=== PATIENT | male | born 1950 | race Caucasian/White ===

== ENCOUNTER 2021-09-29 00:05 | Emergency (ER) | payer OTHER ==
[~2021-09-29] VITALS: Ht 167.6 cm; Wt 81.6 kg
[2021-09-29 00:32] VITALS: BP 117/41
--- NOTE | 2021-09-29 00:34 | NUR ---
PT TO BED 2
[2021-09-29 00:58] LABS: BASOPHILS % (AUTO) 0.8 % (0.0-2.0); EOSINOPHILS # (AUTO) 0.1 K/uL (0-0.4); EOSINOPHILS % (AUTO) 2.8 % (0.0-4.0); HEMATOCRIT 41.9 % (36-52); HEMOGLOBIN 14.1 g/dL (12.0-18.0); LYMPHOCYTES # (AUTO) 0.7 K/uL (2.0-11.5); MEAN CORPUSCULAR HEMOGLOBIN 31 pg (27-31); MEAN CORPUSCULAR HGB CONC 34 g/dL (33-37); MEAN CORPUSCULAR VOLUME 92.8 fL (80-94); MONOCYTES # (AUTO) 0.3 K/uL (0.8-1.0); MONOCYTES % (AUTO) 9.3 % (1.7-9.3); NEUTROPHILS # (AUTO) 2.2 K/uL (1.8-7.7); NEUTROPHILS % (AUTO) 65.1 % (42.2-75.2); PLATELET COUNT (AUTO) 156 K/uL (140-450); RED BLOOD CELL COUNT(AUTO) 4.52 MIL/uL (4.20-6.10); RED CELL DISTRIBUTION WIDTH 15.1 % (11.6-13.7); WHITE BLOOD COUNT (AUTO) 3.3 K/uL (4.8-10.8)
[2021-09-29 01:56] LABS: ANION GAP 15.8 (8-16); CARBON DIOXIDE 26.6 mmol/L (21-32); CHLORIDE 100 mmol/L (98-107); POTASSIUM 3.4 mmol/L (3.5-5.1); SODIUM SERUM 139 mmol/L (136-145)
[2021-09-29 01:57] LABS: GLUCOSE 133 mg/dL (74-106); TOTAL BILIRUBIN 4.5 mg/dL (0.0-1.0); UREA NITROGEN, BLOOD 14 mg/dL (7-18)
[2021-09-29 02:03] LABS: ALBUMIN 3.2 g/dL (3.4-5.0); ASPARTATE AMINOTRANSFERASE 360 U/L (15-37)
--- NOTE | 2021-09-29 02:45 | NUR ---
PER PATIENT HIS BEEN HAVING TROUBLE URINATION SINCE THE FALL, URINARY RETENTION X 3 DAYS. FRANCINE MADE AWARE, ATTEMPTED TO INSERT FC SILICONE CATH, RESISTANCE MET DURING INSERTION. F14 COUDE CATHETER INSERTED WITHOUT DIFFICULTY.
[2021-09-29] MEDS ORDERED: ATEN25TA7 PO (04:51)
[2021-09-29] MEDS ORDERED: TAMS0.4C96 PO (04:54)
[2021-09-29] MEDS ORDERED: ATOR40TA PO (04:54)
[2021-09-29] MEDS ORDERED: OMEP20EC11 PO (04:54)
[2021-09-29] MEDS ORDERED: CHOL500040 PO (04:59)
[2021-09-29] MEDS ORDERED: SENN-72 PO (04:59)
[2021-09-29] MEDS ORDERED: MIRT-91 PO (04:59)
[2021-09-29] MEDS ORDERED: [UNRECOGNIZED DRUG - CODE] PO (04:59)
[2021-09-29] MEDS ORDERED: DOCU-299 PO (04:59)
[2021-09-29] MEDS ORDERED: METF-350 PO (04:59)
--- NOTE | 2021-09-29 05:52 | NUR ---
CT scan read ready and seen by Dr. Muse,negative for fracture. Will dc back to long term facility. Receiving RN Jennie aware. DR. Muse made aware of patient's fc, ok to remove once discharge transportation is requested.
[2021-09-29] MEDS ORDERED: IBUP-2213 PO (05:55)
[2021-09-29] MEDS ORDERED: ACET-8386 PO (05:55)
--- NOTE | 2021-09-29 06:49 | NUR ---
Dong catheter removed, patient woken up for road test, pt says he can't stand.
--- NOTE | 2021-09-29 07:17 | NUR ---
Hand-off to Dedrick RN for continuity of care. Receiving facility aware of patient's discharge.
--- NOTE | 2021-09-29 09:21 | NUR ---
TRANSPORTATION ETA 1400
--- NOTE | 2021-09-29 09:25 | NUR ---
CONTACTED [facility] SPOKE TO MIK INFORMED TRANSPORT TIME 1400
--- NOTE | 2021-09-29 13:30 | NUR ---
Patient to be transferred to [facility]. Is being transferred due to lower level of care. Receiving facility has accepting physician and available space. ER physician has signed transfer form. Patient or responsible alliance party has agreed to transfer and signed form. Patient belongings inventoried and will be sent with patient. Copy of nursing notes, lab reports, EKG, Physicians Orders and X-rays to be sent with patient. Report called to [facility] at receiving facility. [facility] CONTACTED FOR TRANSPORT.
--- NOTE | 2021-09-29 13:53 | NUR ---
PATIENT AMBULATED FROM WHEEL CHAIR TO [facility] AND WAS ABLE TO STAND AND ENTER VEHICLE WITH MINIMAL ASSISTANCE
--- NOTE | 2021-09-29 13:54 | NUR ---
[facility] CONTACTED TO INFORM PATIENT ARRIVING SHORTLY TO ASSIST INTO FACILITY
[2021-09-29 13:55] VITALS: BP 103/54
== END 2021-09-29 13:53 ==
LOC: MED 00:05
DX: S70.02XA Contusion of left hip, initial encounter (principal); R10.32 Left lower quadrant pain; E11.9 Type 2 diabetes mellitus without complications; I10 Essential (primary) hypertension; Z98.890 Other specified postprocedural states; Z79.899 Other long term (current) drug therapy; Z88.1 Allergy status to other antibiotic agents; Z88.8 Allergy status to other drugs, medicaments and biological substances; W18.39XA Other fall on same level, initial encounter; Y92.89 Other specified places as the place of occurrence of the external cause; Y93.89 Activity, other specified; Y99.8 Other external cause status
CPT/HCPCS: 36415; 71045; 72192; 73502; 80053; 84484; 85025; 93005; 99285; Q0092

== ENCOUNTER 2021-10-08 06:40 | Inpatient (IN) | payer OTHER ==
[~2021-10-08] VITALS: Ht 170.2 cm; Wt 68.5 kg
[2021-10-08] VITALS (13 sets, daily range): BP systolic 108–133; BP diastolic 58–77
[~2021-10-08 06:40] MED LIST: ACET-8386 PO; ATEN25TA7 PO; ATOR40TA PO; CHOL500040 PO; DOCU-299 PO; IBUP-2213 PO; METF-350 PO; MIRT-91 PO; OMEP20EC11 PO; SENN-72 PO; TAMS0.4C96 PO; [UNRECOGNIZED DRUG - CODE] PO
--- NOTE | 2021-10-08 06:44 | NUR ---
PT BROUGHT TO BED 7 VIA HAILE TATUM
--- NOTE | 2021-10-08 06:46 | NUR ---
DR LARRY AT BEDSIDE EVALUATING PT
[2021-10-08] MEDS ORDERED: NACL 0.9% 1,000 ML IV ONE (06:50)
[2021-10-08] MEDS ORDERED: PANTOPRAZOLE 40 MG INJ VIAL IVP ONE (06:55)
[2021-10-08 07:18] LABS: BASOPHILS % (AUTO) 0.1 % (0.0-2.0); EOSINOPHILS % (AUTO) 0.1 % (0.0-4.0); HEMATOCRIT 28.1 % (36-52); HEMOGLOBIN 9.4 g/dL (12.0-18.0); LYMPHOCYTES # (AUTO) 1.5 K/uL (2.0-11.5); LYMPHOCYTES % (AUTO) 14.2 % (20.5-51.1); MEAN CORPUSCULAR HEMOGLOBIN 32 pg (27-31); MEAN CORPUSCULAR HGB CONC 34 g/dL (33-37); MEAN CORPUSCULAR VOLUME 94.6 fL (80-94); MONOCYTES # (AUTO) 0.6 K/uL (0.8-1.0); NEUTROPHILS # (AUTO) 8.5 K/uL (1.8-7.7); NEUTROPHILS % (AUTO) 79.6 % (42.2-75.2); PLATELET COUNT (AUTO) 266 K/uL (140-450); RED BLOOD CELL COUNT(AUTO) 2.97 MIL/uL (4.20-6.10); RED CELL DISTRIBUTION WIDTH 15.9 % (11.6-13.7); WHITE BLOOD COUNT (AUTO) 10.7 K/uL (4.8-10.8)
[2021-10-08] MEDS ORDERED: ONDANSETRON 4 MG/2 ML VIAL IVP ONE (07:35)
--- NOTE | 2021-10-08 07:45 | NUR ---
70 Y/O MALE BIBA FROM [facility] C/O N/V X0545 TODAY. +BLOOD IN VOMIT. PER MEDICS, 100CC OF BLOOD. PT ALSO C/O HEADACHE AND ABDOMINAL PAIN. DENIES ANYTHING LIKE THIS HAPPENING BEFORE. ABDOMEN IS TENDER. PT DENIES FEVER, CHILLS, SOB, CHEST PAIN. PMH:DM2. HTN, HIP FX, ANEMIA, HLD, LIVER CIRRHOSIS ALLERGIES: CIPROFLOXACIN, DULOXETINE, NORTRIPTYLINE
[2021-10-08 07:58] LABS: ALBUMIN 2.4 g/dL (3.4-5.0); ANION GAP 21.6 (8-16); ASPARTATE AMINOTRANSFERASE 383 U/L (15-37); CARBON DIOXIDE 17.6 mmol/L (21-32); CHLORIDE 99 mmol/L (98-107); CREATININE 1.4 mg/dL (0.6-1.3); GLUCOSE 257 mg/dL (74-106); LIPASE 143 U/L (73-393); POTASSIUM 4.2 mmol/L (3.5-5.1); SODIUM SERUM 134 mmol/L (136-145); TOTAL BILIRUBIN 4.4 mg/dL (0.0-1.0); UREA NITROGEN, BLOOD 56 mg/dL (7-18)
[2021-10-08 08:14] LABS: PROTHROMBIN TIME 15.3 secs (10.8-13.4)
--- NOTE | 2021-10-08 08:49 | NUR ---
PT TAKEN TO CT SCAN VIA RC
[2021-10-08] MEDS ORDERED: cefTRIAXone 1,000 MG VIAL ONE (09:30)
[2021-10-08] MEDS ORDERED: OCTREOTIDE ACETATE 100 MCG/ML VIAL IV SCH (10:00)
[2021-10-08] MEDS ORDERED: OCTREOTIDE ACETATE 1.25 MG in NACL 0.9% 250 ML IV SCH (10:00)
--- NOTE | 2021-10-08 10:00 | NUR ---
YURY HENRY AND URINE WALKED TO LAB
[2021-10-08] MEDS ORDERED: ACETAMINOPHEN 325 MG TAB PO PRN (10:20)
[2021-10-08] MEDS ORDERED: DOCUSATE SODIUM 100 MG GELCAP PO PRN (10:20)
[2021-10-08] MEDS ORDERED: ONDANSETRON 4 MG/2 ML VIAL IM/IVP PRN (10:20)
--- NOTE | 2021-10-08 10:23 | NUR ---
per icu charge nurse, pt will go to ICU 7 once the karsten clears
[2021-10-08 10:32] LABS: APPEARANCE,URINE CLEAR (CLEAR); BILIRUBIN,URINE 1+ (NEGATIVE); BLOOD, URINE TRACE-I (NEGATIVE); COLOR,URINE YELLOW (YELLOW); LEUKOCYTE ESTERASE ,URINE NEGATIVE (NEGATIVE); NITRITE, URINE NEGATIVE (NEGATIVE); UGLUCOSE 2+ (NEGATIVE)
[2021-10-08] MEDS: NACL 0.9% 1,000 ML IV SCH (11:00)
--- NOTE | 2021-10-08 11:08 | NUR ---
Patient will be admitted to care of . Admited to ICU . Will go to rooM 7. Belongings list completed. Report to ALEC AKERS.
[2021-10-08 11:25] LABS: MAGNESIUM 1.8 mg/dL (1.8-2.4); PHOSPHORUS 2.5 mg/dL (2.5-4.9); THYROID STIMULATING HORMONE 2.33 uIU/mL (0.34-3.74)
[2021-10-08 11:28] LABS: BARBITURATE, URINE NEGATIVE ng/ml (NEG <=200); BENZODIAZEPINE, URINE NEGATIVE ng/mL (NEG <=200); CANNABINOID, URINE NEGATIVE ng/mL (NEG <=50); COCAINE, URINE NEGATIVE ng/mL (NEG <=300); OPIATE, URINE POSITIVE ng/mL (NEG <=2000); PHENCYCLIDINE SCREEN,URINE NEGATIVE ng/mL (NEG <=25)
--- NOTE | 2021-10-08 11:30 | NUR ---
PT ARRIVED FROM ER, RECEIVED BEDSIDE REPORT FROM ANSON AJ RN FOR CONTINUITY OF CARE. SUPINE IN THE BED, EYES OPEN, PERRLA, AAOX4. ON ROOM AIR, SPO2 100%. ST ON THE MONITOR. HR 130. NOTED TO HAVE BLOODY EMESIS. BOWEL SOUNDS ACTIVE. INCONTINENT OF BOWEL, PER ANSON, LAST BM WAS TODAY 1045. CONTINENT OF BLADDER, PT USES URINAL. NONAMBULATORY, PT LETHARGIC. R AC 20G IV PATENT, INTACT. STANDARD PRECAUTIONS IN PLACE. SAFETY PRECAUTIONS MET. INITIAL ASSESSMENT COMPLETE, WILL CONTINUE TO CLOSELY MONITOR.
[2021-10-08] MEDS ORDERED: MIDAZOLAM 5 MG/5 ML VIAL ONE (11:39)
[2021-10-08] MEDS ORDERED: fentaNYL citrate 0.05 MG/ML VIAL ONE (11:39)
[2021-10-08] MEDS ORDERED: diphenhydrAMINE 50 MG/ML VIAL ONE (11:39)
--- NOTE | 2021-10-08 11:45 | NUR ---
EGD DONE BY DR SOLIMAN FOUND E. VARICES.
[2021-10-08] MEDS: OCTREOTIDE ACETATE 1.25 MG in NACL 0.9% 250 ML IV SCH (11:47)
--- NOTE | 2021-10-08 12:15 | NUR ---
ENDORSED BEDSIDE REPORT TO DIONY PRIMARY RN FOR CONTINUITY OF CARE.
[2021-10-08] MEDS ORDERED: fentaNYL citrate 0.05 MG/ML VIAL IVP ONE (13:00)
[2021-10-08] MEDS ORDERED: MIDAZOLAM 2 MG/2 ML VIAL IVP ONE (13:00)
[2021-10-08 13:42] LABS: RBC,URINE 0-5 /HPF (0-5); WBC,URINE 0-5 /HPF (0-5)
[2021-10-08 14:31] LABS: BASOPHILS % (AUTO) 0.1 % (0.0-2.0); HEMATOCRIT 25.1 % (36-52); HEMOGLOBIN 8.4 g/dL (12.0-18.0); LYMPHOCYTES % (AUTO) 16.5 % (20.5-51.1); MEAN CORPUSCULAR HEMOGLOBIN 31 pg (27-31); MEAN CORPUSCULAR HGB CONC 33 g/dL (33-37); MEAN CORPUSCULAR VOLUME 93.4 fL (80-94); MONOCYTES # (AUTO) 0.8 K/uL (0.8-1.0); MONOCYTES % (AUTO) 6.5 % (1.7-9.3); NEUTROPHILS # (AUTO) 9.5 K/uL (1.8-7.7); NEUTROPHILS % (AUTO) 76.9 % (42.2-75.2); PLATELET COUNT (AUTO) 249 K/uL (140-450); RED BLOOD CELL COUNT(AUTO) 2.69 MIL/uL (4.20-6.10); RED CELL DISTRIBUTION WIDTH 16.1 % (11.6-13.7); WHITE BLOOD COUNT (AUTO) 12.4 K/uL (4.8-10.8)
--- NOTE | 2021-10-08 17:00 | NUR ---
REPOSITION INCONTINENT LARGE AMOUNT OF MELENA STOOL.
--- NOTE | 2021-10-08 18:00 | NUR ---
PT. COMPLAIN PAIN ON HIS BACK 9/10 SCALE MORPHINE SULFATE GAVE ORDERED,
--- NOTE | 2021-10-08 19:15 | NUR ---
RECEIVED BEDSIDE REPORT FROM DAY SHIFT NURSE. PATIENT IS AWAKE, ALERT, AND COOPERATIVE. S/P EGD. RESPIRATION EVEN UNLABORED ON 2L NC O2 SATING AT 100%. SKIN IS WARM AND DRY. IV PATENT AND INTACT. OCTREOTIDE RUNNING AT 10ML/HR (50MCG/HR) AND NS AT 60ML/HR. NO BLEEDING NOTED AT THIS TIME. PLAN OF CARE DISCUSSED. ALL SAFETY MEASURES IN PLACE. BED IS AT LOW POSITION. CALL LIGHT WITHIN REACH. WILL CONTINUE TO MONITOR.
--- NOTE | 2021-10-08 19:24 | NUR ---
ENDORSED TO WOOD PATTERN MAKER NURSE KISSES FOR CONTINUITY OF CARE.
--- NOTE | 2021-10-08 19:27 | NUR ---
AWAKE FOLLOW COMMAND , REPORT GIVE TO KISSES .
[2021-10-08] MEDS: MORPHINE SULFATE 2 MG/ML SYR IVP PRN ×2 (19:44→23:46)
--- NOTE | 2021-10-08 20:00 | NUR ---
INITIAL ASSESSMENT DONE
[2021-10-08] MEDS: PANTOPRAZOLE 40 MG INJ VIAL IVP SCH (20:36)
--- NOTE | 2021-10-08 20:40 | NUR ---
ALL SCHEDULED MEDS GIVEN PER ORDER, WILL CONTINUE TO MONITOR.
[2021-10-08 21:16] LABS: HEMATOCRIT 25.4 % (36-52); HEMOGLOBIN 8.3 g/dL (12.0-18.0)
--- NOTE | 2021-10-08 22:44 | NUR ---
PATIENT HAD A MODERATE BLACK TARRY STOOL.
--- NOTE | 2021-10-08 23:50 | NUR ---
PATIENT COMPLAINED OF BACK PAIN 8. PRN PAIN MEDS GIVEN PER ORDER WILL CONTINUE TO MONITOR
[2021-10-09] VITALS (18 sets, daily range): BP systolic 83–146; BP diastolic 52–100
[2021-10-09 00:17] LABS: HEMATOCRIT 22.3 % (36-52); HEMOGLOBIN 7.4 g/dL (12.0-18.0)
--- NOTE | 2021-10-09 02:30 | NUR ---
PATIENT HAD BLACK TARRY STOOLS X2
[2021-10-09] MEDS: NACL 0.9% 1,000 ML IV SCH ×2 (05:16→19:01)
--- NOTE | 2021-10-09 05:17 | NUR ---
AM CARE PROVIDED
[2021-10-09 05:34] LABS: HEMATOCRIT 21.4 % (36-52); HEMOGLOBIN 7.1 g/dL (12.0-18.0)
--- NOTE | 2021-10-09 07:30 | NUR ---
Received report on pt. Pt AOx2/3, in no acute distress on room air. Pt states no pain. IV sites intact, patent with IVF and sandostatin drip.
[2021-10-09] MEDS: PANTOPRAZOLE 40 MG INJ VIAL IVP SCH ×2 (08:18→21:00)
--- NOTE | 2021-10-09 08:34 | NUR ---
PATIENT HAS BEEN SCREENED AND CATEGORIZED HIGH NUTRITION RISK. PATIENT WILL BE SEEN WITHIN 1-2 DAYS OF ADMISSION. 10/09/[address]
[2021-10-09 08:36] LABS: BASOPHILS % (AUTO) 0.2 % (0.0-2.0); EOSINOPHILS % (AUTO) 0.1 % (0.0-4.0); HEMATOCRIT 22.4 % (36-52); HEMOGLOBIN 7.3 g/dL (12.0-18.0); LYMPHOCYTES # (AUTO) 2.3 K/uL (2.0-11.5); LYMPHOCYTES % (AUTO) 15.8 % (20.5-51.1); MEAN CORPUSCULAR HEMOGLOBIN 32 pg (27-31); MEAN CORPUSCULAR HGB CONC 33 g/dL (33-37); MEAN CORPUSCULAR VOLUME 96.3 fL (80-94); MONOCYTES # (AUTO) 1.5 K/uL (0.8-1.0); NEUTROPHILS # (AUTO) 10.9 K/uL (1.8-7.7); NEUTROPHILS % (AUTO) 73.9 % (42.2-75.2); PLATELET COUNT (AUTO) 200 K/uL (140-450); RED BLOOD CELL COUNT(AUTO) 2.32 MIL/uL (4.20-6.10); RED CELL DISTRIBUTION WIDTH 16.1 % (11.6-13.7); WHITE BLOOD COUNT (AUTO) 14.7 K/uL (4.8-10.8)
[2021-10-09 09:07] LABS: ANION GAP 15.5 (8-16); CARBON DIOXIDE 22.9 mmol/L (21-32); CHLORIDE 106 mmol/L (98-107); CREATININE 1.2 mg/dL (0.6-1.3); GLUCOSE 221 mg/dL (74-106); POTASSIUM 3.4 mmol/L (3.5-5.1); SODIUM SERUM 141 mmol/L (136-145); UREA NITROGEN, BLOOD 57 mg/dL (7-18)
[2021-10-09 09:21] LABS: MAGNESIUM 1.9 mg/dL (1.8-2.4)
[2021-10-09] MEDS ORDERED: SODIUM PHOSPHATE 15 MMOLE in NACL 0.9% 250 ML IV ONE (10:30)
[2021-10-09] MEDS ORDERED: POTASSIUM CHLORIDE 40 MEQ, LIDOCAINE MPF 1% 25 MG in NACL 0.9% 250 ML IV ONE (10:30)
[2021-10-09] MEDS ORDERED: POTASSIUM PHOSPHATE 15 MM in NACL 0.9% 250 ML IV ONE (10:35)
[2021-10-09] MEDS: OCTREOTIDE ACETATE 1.25 MG in NACL 0.9% 250 ML IV SCH (10:40)
--- NOTE | 2021-10-09 10:59 | NUR ---
DC PLANNIN YRS OLD MALE PATIENT WAS ADMITTED FROM [facility] WITH A DX OF ACUTE GI ESOPHAGEAL VARICES. PATIENT HAS A HX OF DM AND HTN. CT ABD/PELVIS SHOWED CIRRHOTIC LIVER SPLENOMEGALY, CHOLELITHIASIS. H/H 7.1/21.4 ADMINISTERED SANDOSTATIN DRIP AND IVF. CONSULTED WITH ID, GI, CARDIO AND PULMO. DC PLAN TO RETURN TO [facility] WHEN STABLE. CM TO FOLLOW Addendum: 10/12/21 at 1222 by Senait Villagomez RN DC PLANNING: PATIENT HAS A DC ORDER TO RETURN TO [facility]. CALLED [facility] SPOKE WITH MAURA MALDONADO ALL PAPERWORK WILL CALL BACK AFTER REVIEWING THE PAPER WORK CM TO FOLLOW. Addendum: 10/12/21 at 1342 by Senait Villagomez RN DC PLANNING: RECEIVED A CALL FROM MAURA AT [facility] PT CAN GO TO ROOM 37B UNDER THE CARE OF DR REYES. ARRANGED TRANSPORT WITH [facility] AWAITING FOR ETA. # TO GIVE REPORT [phone]. CM TO FOLLOW Addendum: 10/12/21 at 1607 by Senait Villagomez RN DC PLANNING: RECEIVED A CALL FROM [place] [phone] SPOKE WITH SHAQ STATED HE IS ARRANGING THE TRANSPORT AND WILL CALL FOR THE ETA. DULCE TO FOLLOW
[2021-10-09] MEDS ORDERED: POTASSIUM PHOSPHATE 15 MM in NACL 0.9% 250 ML IV SCH (11:00)
[2021-10-09] MEDS: MORPHINE SULFATE 2 MG/ML SYR IVP PRN ×2 (11:05→22:00)
--- NOTE | 2021-10-09 11:15 | NUR ---
Pt noted with moderate amount loose dark BM and large amount of urine. Bed bath and linen change done.
--- NOTE | 2021-10-09 12:58 | NUR ---
10/09/21 RD INITIAL ASSESSMENT COMPLETED PLEASE REFER TO NUTRITION ASSESSMENT UNDER CARE ACTIVITY FOR ESTIMATED NUTRITIONAL NEEDS. 1. WHEN/IF MEDICALLY APPROPRIATE, RECOMMEND CARDIAC/CCHO 60 MG DIET 2. RECOMMEND GLUCERNA BID FOR NUTRITIONAL SUPPORT 3. WILL MONITOR GI SYMPTOMS 4. RD TO FOLLOW-UP 2-3 DAYS, HIGH RISK REVIEWED BY FUNMILAYO CASTELLON RD
--- NOTE | 2021-10-09 14:02 | NUR ---
ORDER TO BE TRANSFER TO TELE BY AND WILL START ON FULL LIQUID DIET TO DAY.
--- NOTE | 2021-10-09 14:43 | NUR ---
DC PLANNING PATIENT IS A 70 YR OLD MALE ADMITTED TO [facility] FROM [facility] WITH A DX OF ACUTE GI ESOPHAGEAL VARICES. SW OUTREACHED TO [facility] FOR THE PURPOSE OF DISCUSSING AND GATHERING COLLATERAL INFORMATION. JANINA SPOKE WITH LUMA ([facility] ADMIN) WHO REPORTS PATIENT HAS BEEN IN SKILLED CARE SINCE 03/27/21. LUMA REPORTS THAT PATIENT RECIEVES PT AND CAN WALK 15FT WITH FWW ASSIST, HOWEVER, PRIMARILY UTILIZES A WHEELCHAIR, NO ADDITIONAL DME REPORTED BY LUMA. LUMA REPORTS THAT PATIENT PRIMARILY MAKES HIS OWN DECISIONS AND PATIENTS FIRST EMERGENCY CONTACT FRANCIS (NEPHEW) [phone]. DC PLAN IS FOR PATIENT TO RETURN TO [facility]. JANINA WILL FOLLOW UP NEEDED
--- NOTE | 2021-10-09 17:35 | NUR ---
Transferred pt to telemetry 123A via bed. Situated pt to room and call light. Connected to O2 2L.
--- NOTE | 2021-10-09 17:35 | NUR ---
MOVED PT FROM THE ICU ON TO THE FLOOR BY BED W RN - PT REMAINED ON NASAL CANNULA
--- NOTE | 2021-10-09 18:58 | NUR ---
Pt resting in bed, arousable. Pt provided with tray but does not want to have dinner tray. Remains on 2L O2 via NC. IV fluids running. Will endorse plan of care to RN.
[2021-10-10] VITALS: BP 120/55
--- NOTE | 2021-10-10 00:25 | NUR ---
PATIENT IS ALERTX3 CAN GET ANGRY FAST IF YOU ARE DOING SOMETHING TO HIM. IS ON MONITOR SINUS TACH TEMP 97.8 SAT 100%. HAS 02 ON 2 LITERS N/C. HAS NS INFUSING IN LEFT ARM 22 GA. C/O OF GENERALIZE PAIN MED. WITH MORPHINE 1 MG IVP 2200.PATIENT STATED PAIN A 8 PATIENT SLEEPING NOW WITH NO SIGNS OF ACUTE DISTRESS.
[2021-10-10 04:00] VITALS: BP 119/56
[2021-10-10 06:16] LABS: BASOPHILS % (AUTO) 0.2 % (0.0-2.0); EOSINOPHILS % (AUTO) 0.2 % (0.0-4.0); HEMATOCRIT 20.1 % (36-52); LYMPHOCYTES # (AUTO) 1.8 K/uL (2.0-11.5); LYMPHOCYTES % (AUTO) 20.2 % (20.5-51.1); MEAN CORPUSCULAR HEMOGLOBIN 33 pg (27-31); MEAN CORPUSCULAR HGB CONC 34 g/dL (33-37); MEAN CORPUSCULAR VOLUME 97.2 fL (80-94); MONOCYTES # (AUTO) 0.8 K/uL (0.8-1.0); MONOCYTES % (AUTO) 9.4 % (1.7-9.3); NEUTROPHILS # (AUTO) 6.2 K/uL (1.8-7.7); PLATELET COUNT (AUTO) 159 K/uL (140-450); RED BLOOD CELL COUNT(AUTO) 2.07 MIL/uL (4.20-6.10); RED CELL DISTRIBUTION WIDTH 16.2 % (11.6-13.7); WHITE BLOOD COUNT (AUTO) 8.8 K/uL (4.8-10.8)
[2021-10-10 06:26] LABS: ANION GAP 13.9 (8-16); CARBON DIOXIDE 23.8 mmol/L (21-32); CHLORIDE 108 mmol/L (98-107); CREATININE 1.3 mg/dL (0.6-1.3); GLUCOSE 160 mg/dL (74-106); SODIUM SERUM 143 mmol/L (136-145); UREA NITROGEN, BLOOD 51 mg/dL (7-18)
[2021-10-10 06:30] LABS: POTASSIUM 2.7 mmol/L (3.5-5.1)
[2021-10-10 06:37] LABS: HEMOGLOBIN 6.8 g/dL (12.0-18.0)
[2021-10-10] MEDS: DEXT 5% /NACL 0.9% 1,000 ML IV SCH ×2 (06:45→11:29)
--- NOTE | 2021-10-10 07:30 | NUR ---
RECEIVED BEDSIDE REPORT FROM DAY SHIFT NURSE. PATIENT IS AWAKE, ALERT, AND COOPERATIVE. S/P EGD 10/08. RESPIRATION EVEN UNLABORED ON 2L NC O2 SATING AT 100%. SKIN IS WARM AND DRY. IV PATENT AND INTACT LAC 22G, RAC 20G. NS AT 60ML/HR. NO APPARENT BLEEDING NOTED AT THIS TIME. PLAN OF CARE DISCUSSED. ALL SAFETY MEASURES IN PLACE. BED IS AT LOW POSITION. CALL LIGHT WITHIN REACH. WILL CONTINUE TO MONITOR.
[2021-10-10 08:00] VITALS: BP 121/60
--- NOTE | 2021-10-10 09:00 | NUR ---
DUE MEDS GIVEN. TOLERATED WELL
[2021-10-10] MEDS: PANTOPRAZOLE 40 MG INJ VIAL IVP SCH ×2 (09:24→21:00)
--- NOTE | 2021-10-10 11:00 | NUR ---
MARÍA CARE DONE, TURNED AND REPOSITIONED
[2021-10-10] MEDS: POTASSIUM CHLORIDE 40 MEQ, LIDOCAINE MPF 1% 25 MG in NACL 0.9% 250 ML IV PRN (11:29)
[2021-10-10] MEDS: OCTREOTIDE ACETATE 1.25 MG in NACL 0.9% 250 ML IV SCH (11:29)
[2021-10-10 12:00] VITALS: BP 120/59
--- NOTE | 2021-10-10 14:10 | NUR ---
BLOOD TRANSFUSION STARTED, WILL MONITOR VS AND FOR ADVERSE REACTIONS
[2021-10-10 16:00] VITALS: BP 101/40
--- NOTE | 2021-10-10 16:30 | NUR ---
BLOOD TRANSFUSION DONE, NO ADVERSE REACTIONS NOTED, VS STABLE
[2021-10-10] MEDS ORDERED: cefTRIAXone 1,000 MG VIAL ONE (17:05)
--- NOTE | 2021-10-10 18:42 | NUR ---
RESPIRATIONS EVEN AND UNLABORED WITH NO APPARENT S/SX OF ACUTE DISTRESS.
[2021-10-10 19:54] LABS: HEMOGLOBIN 8.1 g/dL (12.0-18.0)
[2021-10-10 19:56] LABS: HEMATOCRIT 24.3 % (36-52)
[2021-10-10 20:00] VITALS: BP 142/70
--- NOTE | 2021-10-10 22:45 | NUR ---
PATIENT AWAKE ALERT NO C/O OF PAIN ON MONITOR SINUS TEMP 98.1 PATIENT ON SANDOSTATIN 50 MCG 10CC HOUR. AND NS 60 HOUR. IV OUT 20 GA RIGHT UPPER ARM. CHARGE NURSE PUT 24 GA IN RIGHT WRIST. PATIENT NEEDS PICC LINE.
[2021-10-11] VITALS: BP 135/72
[2021-10-11] MEDS: MORPHINE SULFATE 2 MG/ML SYR IVP PRN ×2 (03:14→10:14)
[2021-10-11 04:00] VITALS: BP 128/76
[2021-10-11 06:12] LABS: ANION GAP 12.6 (8-16); CARBON DIOXIDE 23.5 mmol/L (21-32); CHLORIDE 107 mmol/L (98-107); CREATININE 0.9 mg/dL (0.6-1.3); GLUCOSE 153 mg/dL (74-106); POTASSIUM 3.1 mmol/L (3.5-5.1); SODIUM SERUM 140 mmol/L (136-145); UREA NITROGEN, BLOOD 31 mg/dL (7-18)
[2021-10-11] MEDS: DEXT 5% /NACL 0.9% 1,000 ML IV SCH ×2 (06:35→17:25)
[2021-10-11 06:40] LABS: BASOPHILS % (AUTO) 0.2 % (0.0-2.0); EOSINOPHILS % (AUTO) 0.5 % (0.0-4.0); HEMATOCRIT 23.2 % (36-52); HEMOGLOBIN 7.9 g/dL (12.0-18.0); LYMPHOCYTES # (AUTO) 1.2 K/uL (2.0-11.5); LYMPHOCYTES % (AUTO) 20.9 % (20.5-51.1); MEAN CORPUSCULAR HEMOGLOBIN 32 pg (27-31); MEAN CORPUSCULAR HGB CONC 34 g/dL (33-37); MEAN CORPUSCULAR VOLUME 95.2 fL (80-94); MONOCYTES # (AUTO) 0.6 K/uL (0.8-1.0); MONOCYTES % (AUTO) 10.1 % (1.7-9.3); NEUTROPHILS # (AUTO) 3.8 K/uL (1.8-7.7); NEUTROPHILS % (AUTO) 68.3 % (42.2-75.2); PLATELET COUNT (AUTO) 126 K/uL (140-450); RED BLOOD CELL COUNT(AUTO) 2.44 MIL/uL (4.20-6.10); WHITE BLOOD COUNT (AUTO) 5.6 K/uL (4.8-10.8)
--- NOTE | 2021-10-11 07:35 | NUR ---
RECEIVED PT FROM NIGHT RN, PT IS AWAKE AND LYING ON THE BED WITH SIDE RAILS UP AND CALL LIGHT WITHIN REACH, IV LINE NOTED ON THE RT WRIST G. 24 WITH D5 NS INFUSING AT 100ML/HR AND OCTREOTIDE INFUSING AT 10ML/HR, PT IS ON ROOM AIR. ON BEDREST, FALL RISK AND NO SIGN OF DISTRESS NOTED. WILL CONTINUE TO MONITOR PT.
[2021-10-11 08:00] VITALS: BP 114/64
[2021-10-11] MEDS: PANTOPRAZOLE 40 MG INJ VIAL IVP SCH ×2 (10:06→20:53)
[2021-10-11] MEDS: OCTREOTIDE ACETATE 1.25 MG in NACL 0.9% 250 ML IV SCH (10:07)
--- NOTE | 2021-10-11 10:30 | NUR ---
PT WAS CLEANED AND REPOSITIONED NOW.
[2021-10-11 12:00] VITALS: BP 128/63
[2021-10-11 16:00] VITALS: BP 114/56
--- NOTE | 2021-10-11 16:00 | NUR ---
PT IS SLEEPING NOW, NO SIGN OF DISTRESS NOTED.
[2021-10-11] MEDS: POTASSIUM CHLORIDE 40 MEQ, LIDOCAINE MPF 1% 25 MG in NACL 0.9% 250 ML IV PRN (18:28)
--- NOTE | 2021-10-11 19:30 | NUR ---
NEW MIDLINE IS INSERTED IN RIGHT UPPER ARM THROUGH MIDLINE NURSE, CALL LIGHT IS WITHIN THE REACH , WILL CONTINUE TO MONITOR PATIENT.
--- NOTE | 2021-10-11 19:35 | NUR ---
ENDORSED PT TO NIGHT RN FOR CONTINUITY OF CARE.
--- NOTE | 2021-10-11 19:45 | NUR ---
GET THE REPORT FROM MORNING NURSE,CALL LIGHT IS WITHIN THE REACH,WILL CONTINUE TO MONITOR PATIENT.
[2021-10-11 20:00] VITALS: BP 109/50
--- NOTE | 2021-10-11 20:00 | NUR ---
PATIENT IS LYING ON BED, PATIENT IS RECEIVING 2 LITER OXYGEN VIA NASAL CANNULA, VITAL SIGN IS WITHIN THE NORMAL RANGE,NO ANY COMPLAIN OF PAIN AT THIS TIME,CALL LIGHT IS WITHIN THE REACH,WILL CONTINUE TO MONITOR PATIENT.
--- NOTE | 2021-10-11 21:40 | NUR ---
ALL SCHEDULE MEDICATION IS GIVEN PER DOCTOR ORDER,WILL CONTINUE TO MONITOR PATIENT.
[2021-10-12] VITALS: BP 123/67
--- NOTE | 2021-10-12 | NUR ---
PATIENT IS LYING ON BED, VITAL SIGH IS WITHIN THE NORMAL RANGE ,CALL LIGHT IS WITHIN THE REACH,WILL CONTINUE TO MONITOR PATIENT.
[2021-10-12] MEDS: MORPHINE SULFATE 2 MG/ML SYR IVP PRN (00:32)
--- NOTE | 2021-10-12 00:35 | NUR ---
PATIENT IS COMPLAINING OF PAIN 7/10 , MORPHINE 1MG/0.5ML IV PRN GIVEN AD PER DOCTOR ORDER,WILL REASSESS PAIN LAVAL, CALL LIGHTS WITHIN THE REACH,WILL CONTINUE TO MONITOR PATIENT.
[2021-10-12] MEDS: DEXT 5% /NACL 0.9% 1,000 ML IV SCH ×2 (02:35→06:06)
[2021-10-12 04:00] VITALS: BP 117/54
--- NOTE | 2021-10-12 04:00 | NUR ---
PATIENT IS LYING ON BED, VITAL SIGH IS WITHIN THE NORMAL RANGE ,CALL LIGHT IS WITHIN THE REACH,WILL CONTINUE TO MONITOR PATIENT.
[2021-10-12 05:16] LABS: ANION GAP 12.3 (8-16); CARBON DIOXIDE 21.8 mmol/L (21-32); CHLORIDE 107 mmol/L (98-107); CREATININE 0.8 mg/dL (0.6-1.3); GLUCOSE 188 mg/dL (74-106); POTASSIUM 3.1 mmol/L (3.5-5.1); SODIUM SERUM 138 mmol/L (136-145); UREA NITROGEN, BLOOD 19 mg/dL (7-18)
[2021-10-12 05:32] LABS: BASOPHILS % (AUTO) 0.2 % (0.0-2.0); EOSINOPHILS # (AUTO) 0.1 K/uL (0-0.4); EOSINOPHILS % (AUTO) 1.4 % (0.0-4.0); HEMATOCRIT 22.1 % (36-52); HEMOGLOBIN 7.5 g/dL (12.0-18.0); MEAN CORPUSCULAR HEMOGLOBIN 33 pg (27-31); MEAN CORPUSCULAR HGB CONC 34 g/dL (33-37); MEAN CORPUSCULAR VOLUME 96.7 fL (80-94); MONOCYTES # (AUTO) 0.4 K/uL (0.8-1.0); MONOCYTES % (AUTO) 10.4 % (1.7-9.3); NEUTROPHILS # (AUTO) 2.6 K/uL (1.8-7.7); PLATELET COUNT (AUTO) 114 K/uL (140-450); RED BLOOD CELL COUNT(AUTO) 2.29 MIL/uL (4.20-6.10); RED CELL DISTRIBUTION WIDTH 16.5 % (11.6-13.7)
--- NOTE | 2021-10-12 06:16 | NUR ---
PATIENT IS LYING ON BED, VITAL SIGH IS WITHIN THE NORMAL RANGE ,ALL SCHEDULE MEDS ARE GIVEN PER DR ORDER,CALL LIGHT IS WITHIN THE REACH,WILL CONTINUE TO MONITOR PATIENT.
--- NOTE | 2021-10-12 07:43 | NUR ---
GAVE REPORT TO MORNING NURSE MARYA FOR CONTINUOS OF CARE, PATIENT IS STABLE.
--- NOTE | 2021-10-12 07:45 | NUR ---
RECEIVED REPORT FROM RECORDS MANAGEMENT ANALYST NURSE FOR CONTINUITY OF CARE. PATIENT IS RESTING AT THIS TIME. RESPIRATIONS ARE EVEN AND UNLABORED. PT IS ON 2L NC O2 SATING AT 100%. PT IS ON CARDIAC MONITORING AT THIS TIME. PT IS INCONTINENT OF BOWEL AND BLADDER. SKIN IS WARM AND DRY. PT HAS EARNEST MIDLINE, INFUSING NS AT 100 ML/HR. NO APPARENT BLEEDING NOTED AT THIS TIME. ALL SAFETY MEASURES IN PLACE. BED IS AT LOW POSITION. CALL LIGHT WITHIN REACH. WILL CONTINUE TO MONITOR.
[2021-10-12 08:00] VITALS: BP 130/60
--- NOTE | 2021-10-12 08:12 | NUR ---
PT IS REMOVING TELEMONITOR AT THIS TIME. ASSISTANT ADMINISTRATOR FOUND PT ATTEMPTING TO GET OUT OF BED. RE-ORIENTED PT. REPOSITIONED PT. WILL CONTINUE TO MONITOR.
[2021-10-12] MEDS: PANTOPRAZOLE 40 MG INJ VIAL IVP SCH (09:51)
--- NOTE | 2021-10-12 09:52 | NUR ---
IV MEDICATION ADMINISTERED BY RN. WILL CONTINUE TO MONITOR.
[2021-10-12] MEDS ORDERED: OMEP20EC11 PO (10:17)
[2021-10-12] MEDS ORDERED: DOCU-299 PO (10:17)
[2021-10-12] MEDS ORDERED: LACT500C2 PO (10:17)
[2021-10-12] MEDS ORDERED: Z-GUARD PASTE TP SCH (11:25)
[2021-10-12 12:00] VITALS: BP 128/65
--- NOTE | 2021-10-12 12:09 | NUR ---
LAB CALLED TO REPORT LACTIC ACID IS 2.8, DR HINSON MADE AWARE. WILL CONTINUE TO MONITOR.
--- NOTE | 2021-10-12 14:12 | NUR ---
[facility], GAVE REPORT TO
[2021-10-12 16:00] VITALS: BP 128/53
--- NOTE | 2021-10-12 16:34 | NUR ---
PRINTED CIRCUIT BOARDS BEVELER INFORMED ME THAT PT WILL BE PICKED UP BY TRANSPORTATION AT 1900. WILL CONTINUE TO MONITOR.
--- NOTE | 2021-10-12 18:03 | NUR ---
WENT OVER DISCHARGE PAPERWORK WITH PT. ANSWERED ALL QUESTIONS. PT SIGNED ALL PAPERWORK. MIDLINE REMOVED. CATHETER INTACT. REMOVED WRIST BAND. ALL BELONGINGS TAKEN UPON DISCHARGE. PT DISCHARGED TO [facility].
== END 2021-10-12 18:16 | DRG 432 ==
LOC: MED 06:40 → MIC 10:16 → MTU 10-09 19:48
PROVIDERS: ADMIT Family Medicine; ATTEND Family Medicine
PROC: 06L38CZ Occlusion of Esophageal Vein with Extraluminal Device, Via Natural or Artificial Opening Endoscopic (ICD-10-PCS; 2021-10-09)
PROC: 30233N1 Transfusion of Nonautologous Red Blood Cells into Peripheral Vein, Percutaneous Approach (ICD-10-PCS; principal; 2021-10-10)
PROC: 05HY33Z Insertion of Infusion Device into Upper Vein, Percutaneous Approach (ICD-10-PCS; 2021-10-11)
DX: K74.60 Unspecified cirrhosis of liver (principal); I85.11 Secondary esophageal varices with bleeding; N17.0 Acute kidney failure with tubular necrosis; E43 Unspecified severe protein-calorie malnutrition; R57.1 Hypovolemic shock; D62 Acute posthemorrhagic anemia; K76.6 Portal hypertension; E87.2 Acidosis; E87.1 Hypo-osmolality and hyponatremia; R18.8 Other ascites; I12.9 Hypertensive chronic kidney disease with stage 1 through stage 4 chronic kidney disease, or unspecified chronic kidney disease; E11.65 Type 2 diabetes mellitus with hyperglycemia; Z20.822 Contact with and (suspected) exposure to COVID-19; E11.22 Type 2 diabetes mellitus with diabetic chronic kidney disease; N18.9 Chronic kidney disease, unspecified; E78.5 Hyperlipidemia, unspecified; K80.20 Calculus of gallbladder without cholecystitis without obstruction; Z87.891 Personal history of nicotine dependence; Z88.1 Allergy status to other antibiotic agents; Z88.8 Allergy status to other drugs, medicaments and biological substances; Z79.84 Long term (current) use of oral hypoglycemic drugs; Z79.899 Other long term (current) drug therapy; Z86.73 Personal history of transient ischemic attack (TIA), and cerebral infarction without residual deficits; Z68.23 Body mass index [BMI] 23.0-23.9, adult
CPT/HCPCS: 36415; 80048; 80053; 80305; 81001; 83605; 83690; 83735; 84100; 84443; 84484; 85018; 85025; 85610; 85730; 86886; 86900; 86901; 86920; 87040; 87081; 87086; 93005; 96361; 96365; 96375; 99291; C9113; J0696; J1200; J2001; J2250; J2270; J2354; J2405; J3010; J3480; J7030; J7060; P9016